=== PATIENT | female | born 1995 | race Caucasian/White ===

== ENCOUNTER 2016-11-18 12:22 | Outpatient (CLI) ==
[2016-06-12 12:34] VITALS: BMI 23.6
[2016-11-18 12:56] LABS: BASOPHILS % (AUTO) 0.5 % (0.0-3.0); EOSINOPHILS # (AUTO) 0.2 K/ul (0.0-0.7); EOSINOPHILS % (AUTO) 1.9 % (0.0-7.0); HEMATOCRIT 41.7 % (37.0-47.0); HEMOGLOBIN 14.2 g/dl (12.0-16.0); IMMATURE GRANULOCYTE % (AUTO) 0.2 % (0.0-5.0); LYMPHOCYTES # (AUTO) 2.9 K/uL (0.60-3.4); LYMPHOCYTES % (AUTO) 36.2 (10.0-50.0); MEAN CORPUSCULAR HEMOGLOBIN 31.9 pg (27.0-31.0); MEAN CORPUSCULAR HGB CONC 34.1 (31.8-35.4); MEAN CORPUSCULAR VOLUME 93.7 fl (81.0-99.0); MONOCYTES # (AUTO) 0.4 K/uL (0.4-2.0); MONOCYTES % (AUTO) 5.5 (0-10); NEUTROPHILS # (AUTO) 4.5 K/ul (2.0-6.9); NEUTROPHILS % (AUTO) 55.7; PLATELET COUNT 305 10^3/uL (140-440); RED BLOOD COUNT 4.45 10^6/ul (4.20-5.40); WHITE BLOOD COUNT 8.03 K/ul (4.6-10.2)
[2016-11-18 13:41] LABS: ALBUMIN 4.2 g/dL (3.4-5.0); ALBUMIN/GLOBULIN RATIO 1.27; ANION GAP 14.3; BILIRUBIN,TOTAL 0.59 mg/dL (0.00-1.20); BUN/CREATININE RATIO 12.85; CALCIUM 9.8 mg/dL (8.2-10.2); CHOL/HDL RATIO 3.1 (4.5-5.5); CREATININE 0.7 mg/dL (0.60-1.30); POTASSIUM 4.3 mmol/L (3.5-5.10); TOTAL PROTEIN 7.5 g/dL (6.4-8.2)
[2016-11-19 10:15] LABS: HIV ANTIBODIES QUALITATIVE NON REACTIVE (Nonreactive)
== END 2016-11-18 12:23 | disposition home or self-care (01) ==
LOC: LAB 12:22
PROVIDERS: ATTEND Nurse Practitioner Family
DX: Z11.59 Encounter for screening for other viral diseases (principal); Z20.6 Contact with and (suspected) exposure to human immunodeficiency virus [HIV]; Z87.898 Personal history of other specified conditions
CPT/HCPCS: 36415; 80053; 80061; 80074; 84439; 84443; 85025; 86701

== ENCOUNTER 2016-12-02 13:35 | Emergency (ER) ==
[2016-12-02 13:40] VITALS: BP 114/72; TEMP 98; BMI 25.4
--- NOTE | 2016-12-02 14:49 | ED.PDOC ---
General ED Provider: Dr. NIEVES TORRES JR Chief Complaint: Shoulder Pain/Injury Stated Complaint: helping to move large boxes yesterday--started to feel pain in left shoulder--pain steadily increased during day--similar pain last year dx with pulled muscle. [ End ] Time Seen by Physician: 14:49 Mode of Arrival: Walk-In Information Source: Patient Exam Limitations: No limitations Primary Care [facility] Nursing and Triage Documentation Reviewed and Agree: No Review of Systems - Review Of Systems Constitutional: Reports: No symptoms Eyes: Reports: No symptoms Ears, Nose, Mouth, Throat: Reports: No symptoms Respiratory: Reports: No symptoms Cardiac: Reports: No symptoms : Reports: No symptoms Musculoskeletal: Reports: Muscle pain, Muscle stiffness Skin: Reports: No symptoms Neurological: Reports: No symptoms Endocrine: Reports: No symptoms Hematologic/Lymphatic: Reports: No symptoms All Other Systems: Other Past Medical History - Past Medical History Previously Healthy: Yes Endocrine: Reports: None Cardiovascular: Reports: None Respiratory: Reports: None Hematological: Reports: None Gastrointestinal: Reports: None Genitourinary: Reports: None Neuro/Psych: Reports: None Musculoskeletal: Reports: Back Pain Cancer: Reports: None Last Menstrual Period: first november - Surgical History General Surgical History: Reports: None - Family History Family History: Reports: None - Social History Smoking Status: Current every day smoker, Light tobacco smoker Hx Substance Use: No Alcohol Screening: None Physical Exam - Physical Exam Appearance: Well-appearing, No pain distress, Well-nourished Pain Distress: Moderate Eyes: VICK, EOMI, Conjunctiva clear ENT: Ears normal, Nose normal, Oropharynx normal Neck: Supple Respiratory: Airway patent, Breath sounds clear, Breath sounds equal, Respirations nonlabored Cardiovascular: RRR, Pulses normal, No rub, No murmur GI/: Soft, Nontender, No masses, Bowel sounds normal, No Organomegaly Musculoskeletal: Normal strength, ROM intact, No edema, No calf tenderness ( TENDER ARM) Skin: Warm, Dry, Normal color Neurological: Sensation intact, Motor intact, Reflexes intact, Cranial nerves intact, Alert, Oriented Psychiatric: Affect appropriate, Mood appropriate Critical Care Note - Critical Care Note Total Time (mins): 0 Course - Course Vital Signs: Temp Pulse Resp BP Pulse Ox 12/02/16 13:36 98 F 76 20 114/72 99 Departure - Departure Time of Disposition: 14:58 Disposition: HOME SELF-CARE Discharge Problem: Shoulder pain, Injury of shoulder region Instructions: Shoulder Sprain (ED), Swollen Joint (ED), Exercises for Shoulder Flexion and Extension (ED), Early Postoperative or Post Injury Shoulder Exercises (ED), Exercises for Internal and External Shoulder Rotation (ED) Condition: Good Pt referred to PMD for follow-up: Yes Additional Instructions: no exercises for two to four weeks to allow for healing may lift as tolerated norco for pain flexeril to relax spasms (note each makes one drowsy- do not drive) ice 20 minutes three times a day range of motion shoulder(circles) twice a day recheck PMD 1-2 week discuss exercises before beginning Prescriptions: Hydrocodone Bit/Acetaminophen [Tabiona 5-325] 1 - 2 tab PO Q6HR PRN #20 tablet PRN Reason: pain Cyclobenzaprine HCl [Flexeril] 5 mg PO TID PRN #15 tablet PRN Reason: Spasms Allergies/Adverse Reactions: Allergies No Known Allergies Allergy (Verified 12/02/16 13:41) Home Medications: Ambulatory Orders Aspirin/Acetaminophen/Caffeine [Excedrin Migraine Caplet] 1 each PO PRN Cyclobenzaprine HCl [Flexeril] 5 mg PO TID PRN #15 tablet 12/02/16 Hydrocodone Bit/Acetaminophen [Tabiona 5-325] 1 - 2 tab PO Q6HR PRN #20 tablet
== END 2016-12-02 15:10 | disposition home or self-care (01) ==
LOC: ED 13:35
DX: M25.512 Pain in left shoulder (principal); X50.0XXA Overexertion from strenuous movement or load, initial encounter; F17.210 Nicotine dependence, cigarettes, uncomplicated
CPT/HCPCS: 99282

== ENCOUNTER 2017-05-03 14:16 | Emergency (ER) ==
[2017-05-03] MEDS ORDERED: TETRACAINE 0.5% UNIT-DOSE OP STA (14:20)
[2017-05-03] MEDS ORDERED: FLUORETS OP STA (14:21)
[2017-05-03] MEDS ORDERED: EYE-STREAM OP STA (14:21)
[2017-05-03] MEDS ORDERED: NEO-POLYCIN OPTH OINT OP STA (14:23)
[2017-05-03 14:24] VITALS: BP 131/84; TEMP 98.7; BMI 25.1
--- NOTE | 2017-05-03 14:33 | ED.PDOC ---
General ED Provider: Dr. FRANKY KRUEGER-ER Chief Complaint: Eye Problem Stated Complaint: i scratched my eye Time Seen by Physician: 14:31 Mode of Arrival: Walk-In Information Source: Patient, Family Exam Limitations: No limitations [facility] and Triage Documentation Reviewed and Agree: Yes EENT Complaint Exam - Eye Complaint/Exam Onset/Duration: 24hrs Symptoms Are: Still present Timing: Constant Initial Severity: Mild Current Severity: Mild Location: Discreet, Right Character: Reports: Foreign body sensation Aggravating: Reports: Blinking Alleviating: Reports: None Associated Signs and Symptoms: Reports: Photophobia, Clear drainage, Vision impairment. Denies: Purulent drainage, Fever, Swelling Related History: Reports: Similar episode Eye Surgical History: Reports: None Globe Rupture Risk Factors: Recent trauma Acute Glaucoma Risk Factors: None Optic Artery Occlusion Risk Factors: None Visual Field: Normal Extraocular Movement: Normal Orbit Findings: Normal Globe Findings: Intact Lid Findings: Normal Conjunctival Findings: Red Corneal Findings: Clear Fluorescein Uptake: Yes (6 o clock) Fundi: Normal Slit Lamp Used: No Differential Diagnoses: Corneal Abrasion Review of Systems - Review Of Systems Constitutional: Reports: No symptoms Eyes: Reports: Blurred vision, Vision change, Foreign body sensation, Pain, Photophobia, Glasses Ears, Nose, Mouth, Throat: Reports: No symptoms Respiratory: Reports: No symptoms Cardiac: Reports: No symptoms GI: Reports: No symptoms : Reports: No symptoms Musculoskeletal: Reports: No symptoms Skin: Reports: No symptoms Neurological: Reports: No symptoms Endocrine: Reports: No symptoms Hematologic/Lymphatic: Reports: No symptoms All Other Systems: Reviewed and Negative Past Medical History - Past Medical History Previously Healthy: Yes Endocrine: Reports: None Cardiovascular: Reports: None Respiratory: Reports: None Hematological: Reports: None Gastrointestinal: Reports: None Genitourinary: Reports: None Neuro/Psych: Reports: None Musculoskeletal: Reports: Back Pain Cancer: Reports: None Last Menstrual Period: 04/14/17 - Surgical History General Surgical History: Reports: None - Family History Family History: Reports: None - Social History Smoking Status: Current every day smoker, Light tobacco smoker Hx Substance Use: No Alcohol Screening: None Lives: With family - Immunizations Tetanus Shot up to Date: No Physical Exam - Physical Exam Appearance: Well-appearing, No pain distress, Well-nourished Pain Distress: Moderate Eyes: VICK, EOMI, Conjunctiva inflammed ENT: Ears normal, Nose normal, Oropharynx normal Neck: Supple Respiratory: Airway patent, Breath sounds clear, Breath sounds equal, Respirations nonlabored Cardiovascular: RRR, Pulses normal, No rub, No murmur GI/: Soft, Nontender, No masses, Bowel sounds normal, No Organomegaly Musculoskeletal: Normal strength, ROM intact, No edema, No calf tenderness Skin: Warm, Dry, Normal color Neurological: Sensation intact Psychiatric: Affect appropriate, Mood appropriate, Anxious Procedures - Eye Procedure Location of Foreign Body: no f.b. Tetracaine Drops Administered: Yes Eye FB Removal: Other (corneal abrasion identified--6 oclock position) Depth: Superficial Foreign Body Completely Removed: No Eye Irrigated: No Critical Care Note - Critical Care Note Total Time (mins): 0 Course - Course Orders, Labs, Meds: Orders Category Date Time Status Patch [ED EYE PATCH] .ONCE EMERGENCY 05/03/17 14:21 Active Balanced Salt Solution [Eye-Stream] MEDS 05/03/17 14:21 Discontinued 1 bottle OP ONCE STA Fluorescein Sodium [Fluorets] MEDS 05/03/17 14:21 Discontinued 1 strip OP ONCE STA Neomy Sulf/Bacitra/Polymyxin B [Nickolas-Polycin Opth Oint] MEDS 05/03/17 14:23 Discontinued 1 applic OP ONCE STA Tetracaine HCl/Pf [Tetracaine 0.5% Unit-Dose] MEDS 05/03/17 14:20 Discontinued 2 drop OP ONCE STA Medications Discontinued Medications Generic Name Dose Route Start Last Admin Trade Name Freq PRN Reason Stop Dose Admin Eye Irrigation Solution 1 bottle 05/03/17 14:21 Eye-Stream OP 05/03/17 14:22 ONCE STA Fluorescein Sodium 1 strip 05/03/17 14:21 Fluorets OP 05/03/17 14:22 ONCE STA Neomycin/Polymyxin/Bacitracin 1 applic 05/03/17 14:23 Nickolas-Polycin Opth Oint OP 05/03/17 14:24 ONCE STA Tetracaine HCl 2 drop 05/03/17 14:20 Tetracaine 0.5% Unit-Dose OP 05/03/17 14:21 ONCE STA Vital Signs: Temp Pulse Resp BP Pulse Ox 05/03/17 14:17 98.7 F 93 H 16 131/84 92 L Departure - Departure Time of Disposition: 14:34 Disposition: HOME SELF-CARE Discharge Problem: Corneal abrasion, right Qualifiers: Encounter type: initial encounter Qualifier Code: (S05.01XA) Injury of conjunctiva and corneal abrasion without foreign body, right eye, initial encounter Instructions: Corneal Abrasion (ED) Condition: Good Pt referred to PMD for follow-up: Yes Additional Instructions: keep eye patched--in the am--reapply the ointment and reapply the patch--you MUST follow up with eye professional tomorrow(start where you get your glasses)- -norco 7.5mg q 4hrs prn pain #8 Allergies/Adverse Reactions: Allergies No Known Allergies Allergy (Verified 05/03/17 14:21) Disposition Discussed With: Patient
== END 2017-05-03 14:46 | disposition home or self-care (01) ==
LOC: ED 14:16
DX: S05.01XA Injury of conjunctiva and corneal abrasion without foreign body, right eye, initial encounter (principal); F17.210 Nicotine dependence, cigarettes, uncomplicated
CPT/HCPCS: 99283

== ENCOUNTER 2017-07-31 14:49 | Emergency (ER) ==
[2017-07-31 14:53] VITALS: BP 127/89; TEMP 98.5; BMI 23.6
--- NOTE | 2017-07-31 15:06 | ED.PDOC ---
General ED Provider: Dr. NIEVES TORRES JR Chief Complaint: Back Pain Stated Complaint: patient c/o pain to left shoulder and middle of back. [ End ] 98.5 93 20 98% 127/89 910 Time Seen by Physician: 15:05 Mode of Arrival: Walk-In Information Source: Patient Exam Limitations: No limitations Primary Care Provider: [facility] Nursing and Triage Documentation Reviewed and Agree: No Review of Systems - Review Of Systems Constitutional: Reports: No symptoms Eyes: Reports: No symptoms Ears, Nose, Mouth, Throat: Reports: No symptoms Respiratory: Reports: No symptoms Cardiac: Reports: No symptoms GI: Reports: No symptoms : Reports: No symptoms, Flank pain Musculoskeletal: Reports: Back pain, Muscle pain Skin: Reports: No symptoms Neurological: Reports: No symptoms Endocrine: Reports: No symptoms Hematologic/Lymphatic: Reports: No symptoms All Other Systems: Other Past Medical History - Past Medical History Previously Healthy: Yes Endocrine: Reports: None Cardiovascular: Reports: None Respiratory: Reports: None Hematological: Reports: None Gastrointestinal: Reports: None Genitourinary: Reports: None Neuro/Psych: Reports: None Musculoskeletal: Reports: Back Pain Cancer: Reports: None Last Menstrual Period: beginning of the month - Surgical History General Surgical History: Reports: None - Family History Family History: Reports: None - Social History Smoking Status: Current every day smoker, Light tobacco smoker Hx Substance Use: No Alcohol Screening: None Physical Exam - Physical Exam Appearance: Well-appearing, Thin Pain Distress: Moderate Eyes: VICK, EOMI, Conjunctiva clear ENT: Ears normal, Nose normal, Oropharynx normal Neck: Supple Respiratory: Airway patent, Breath sounds clear, Breath sounds equal, Respirations nonlabored Cardiovascular: RRR, Pulses normal, No rub, No murmur GI/: Soft, Nontender, No masses, Bowel sounds normal, No Organomegaly Musculoskeletal: Normal strength, ROM intact, No edema, No calf tenderness ( BACK PARASPINAL FLANK AND LATERAL THORACIC TENDERNESS CONSISTENT WITH HISTORY OF MOVING ALL OF HER FURNITURE) Skin: Warm, Dry, Normal color Neurological: Sensation intact, Motor intact, Reflexes intact, Cranial nerves intact, Alert, Oriented Psychiatric: Affect appropriate, Mood appropriate Critical Care Note - Critical Care Note Total Time (mins): 0 Course - Course Orders, Labs, Meds: Orders Category Date Time Status UA [URINALYSIS C & S IF INDICATED] Stat LAB 07/31/17 15:22 Received Vital Signs: Temp Pulse Resp BP Pulse Ox 07/31/17 14:49 98.5 F 93 H 20 127/89 98 Departure - Departure Time of Disposition: 15:51 Disposition: HOME SELF-CARE Discharge Problem: Back strain Qualifiers: Encounter type: initial encounter Qualified Code(s): S39.012A - Strain of muscle, fascia and tendon of lower back, initial encounter UTI (urinary tract infection) Qualifiers: Urinary tract infection type: site unspecified Hematuria presence: with hematuria Qualified Code(s): N39.0 - Urinary tract infection, site not specified ; R31.9 - Hematuria, unspecified; R31.9 - Hematuria, unspecified Instructions: Low Back Strain (ED), Muscle Spasm (ED), Lower Back Exercises (ED ), Urinary Tract Infection in Women (ED), Phenazopyridine (By mouth) Condition: Good Pt referred to PMD for follow-up: Yes Additional Instructions: NAPROSYN FOR PAIN FLEXERIL FOR MUSCLE SPASMS MACROBID- ANTIBIOTIC FOR URINARY INFECTION NORCO FOR PAIN NOT CONTROLLED RECHECK ONE WEEK PMD CHECK URINE EVALUATE FOR IMPROVEMENT RETURN IF FEVER OVER 101.0 Prescriptions: Hydrocodone Bit/Acetaminophen [Idamay 5-325] 1 - 2 tab PO Q6HR PRN #12 tablet PRN Reason: pain Naproxen [Naprosyn] 500 mg PO Q12HR PRN #30 tablet PRN Reason: PAIN Cyclobenzaprine HCl [Flexeril] 5 mg PO TID PRN #15 tablet PRN Reason: Spasms Nitrofurantoin Monohyd/M-Cryst [Macrobid] 100 mg PO BID #14 capsule Allergies/Adverse Reactions: Allergies No Known Allergies Allergy (Verified 07/31/17 14:53) Home Medications: Ambulatory Orders Cyclobenzaprine HCl [Flexeril] 5 mg PO TID PRN #15 tablet 07/31/17 Hydrocodone Bit/Acetaminophen [Idamay 5-325] 1 - 2 tab PO Q6HR PRN #12 tablet Naproxen [Naprosyn] 500 mg PO Q12HR PRN #30 tablet 07/31/17 Nitrofurantoin Monohyd/M-Cryst [Macrobid] 100 mg PO BID #14 capsule 07/31/17
[2017-07-31 15:45] LABS: BILIRUBIN,URINE Negative (NEGATIVE); KETONES,URINE Negative (NEGATIVE); LEUKOCYTE ESTERASE ,URINE 2+ (NEGATIVE); NITRITE,URINE Negative (NEGATIVE); PH,URINE 5.5 (5-9); PROTEIN,URINE Negative (NEGATIVE); URINE, BLOOD Trace-lysed (NEGATIVE)
[2017-07-31 15:52] LABS: ADD URINE MICROSCOPIC YES
[2017-07-31 15:53] LABS: TRICHOMONAS,URINE FEW (NOT PRESENT)
== END 2017-07-31 16:13 | disposition home or self-care (01) ==
LOC: ED 14:49
DX: S39.012A Strain of muscle, fascia and tendon of lower back, initial encounter (principal); N39.0 Urinary tract infection, site not specified; R31.9 Hematuria, unspecified; M62.830 Muscle spasm of back; X50.0XXA Overexertion from strenuous movement or load, initial encounter; F17.210 Nicotine dependence, cigarettes, uncomplicated
CPT/HCPCS: 81001; 87086; 99283